=== PATIENT | male | born 1975 | race African-American/Black ===

== ENCOUNTER 2024-08-18 21:59 | Emergency (ER) | payer SELFPAY ==
[~2024-08-18] VITALS: Ht 180.3 cm; Wt 83.0 kg
[2024-08-18 22:03] VITALS: O2SAT 99
[2024-08-18] MEDS ORDERED: DEXAMETHASONE 2MG TABLET PO STA (22:10)
[2024-08-18] MEDS: FAMOTIDINE 20MG TABLET PO ONE (22:40)
[2024-08-18] MEDS: DEXAMETHASONE 4MG TABLET PO SCH (22:40)
[2024-08-18] MEDS: DIPHENHYDRAMINE 25MG CAPSULE PO ONE (23:53)
[2024-08-19] MEDS ORDERED: EPIN0.3A3 IM
[2024-08-19] MEDS ORDERED: DIPH25CA83 MT
[2024-08-19] MEDS ORDERED: DIPH28.33 TP
[2024-08-19 00:25] VITALS: BP 132/87; PULSE 63; RESP 18; TEMP 36.8; O2SAT 100
== END 2024-08-19 00:30 | disposition home or self-care (01) ==
LOC: ER 21:59
DX: T78.40XA Allergy, unspecified, initial encounter (principal); Z88.0 Allergy status to penicillin; Z79.899 Other long term (current) drug therapy; X58.XXXA Exposure to other specified factors, initial encounter; Y93.89 Activity, other specified; Y92.89 Other specified places as the place of occurrence of the external cause; Y99.8 Other external cause status
CPT/HCPCS: 99284; J8540; Q0163